=== PATIENT | male | born 1990 | race Caucasian/White ===

== ENCOUNTER 2022-08-03 02:16 | Emergency (ER) | payer OTHER ==
[~2022-08-03] VITALS: Ht 175.3 cm; Wt 81.7 kg
== END 2022-08-03 03:40 | disposition home or self-care (01) ==
LOC: ED 02:16
DX: S61.412A Laceration without foreign body of left hand, initial encounter (principal); W45.8XXA Other foreign body or object entering through skin, initial encounter
CPT/HCPCS: 12001; 99282-25

== ENCOUNTER 2025-02-12 04:03 | Emergency (ER) | payer OTHER ==
[~2025-02-12] VITALS: Ht 177.8 cm; Wt 73.0 kg
[2025-02-12] MEDS ORDERED: DIPHTH,PERTUSS(ACELL),TET VAC 0.5 ML SYRINGE IM ONE (04:15)
[2025-02-12 05:08] VITALS: BP 139/86
[2025-02-12] MEDS ORDERED: ACETAMINOPHEN 500 MG TAB PO ONE (05:15)
== END 2025-02-12 05:05 | disposition home or self-care (01) ==
LOC: ED 04:03
DX: S00.12XA Contusion of left eyelid and periocular area, initial encounter (principal); W17.89XA Other fall from one level to another, initial encounter
CPT/HCPCS: 70450; 90471; 90715; 99284-25; A9270

== ENCOUNTER 2025-03-02 06:08 | Emergency (ER) | payer BC ==
[~2025-03-02] VITALS: Ht 177.8 cm; Wt 80.0 kg
--- OUTSIDE RECORDS SUMMARY | 2025-03-02 06:15 | XMS ---
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 Princess has no Care Guidelines for this patient. Evan VISIT COUNT (12 MO.) 2 [facility]. TOTAL 2 NOTE: Visits indicate total known visits. ED/C VISIT TRACKING (12 MO.) 03/02/2025 06:08 [facility] [place] TYPE: Emergency COMPLAINT: - SWOLLEN HAND 02/12/2025 04:04 [facility] TYPE: Emergency COMPLAINT: - HEAD INJURY DIAGNOSES: - Contusion of left eyelid and periocular area, initial encounter - Other fall from one level to another, initial encounter - Unspecified injury of head, initial encounter INPATIENT VISIT TRACKING (12 MO.) No inpatient visits to display in this time frame [email or web address]
[2025-03-02] MEDS ORDERED: DOXYCYCLINE HY100 MG PO (06:26)
[2025-03-02] MEDS ORDERED: DOXYCYCLINE HYCLATE 100 MG HOME.PACK PO ONE (06:30)
[2025-03-02 06:31] VITALS: BP 147/93
== END 2025-03-02 06:31 | disposition home or self-care (01) ==
LOC: ED 06:08
DX: L03.012 Cellulitis of left finger (principal)
CPT/HCPCS: 99283; A9270